=== PATIENT | male | born 1960 | race Caucasian/White ===

== ENCOUNTER 2024-09-23 06:05 | Inpatient (IN) | payer MEDICAID ==
[~2024-09-23] VITALS: Ht 188 cm; Wt 101.4 kg
[~2024-09-23 06:05] MED LIST: ASPI-378 OR; ATOR20TA PO; BUPR-133 PO; LISI20TA56 PO; LORA-1121 PO; SERT-289 PO; TICA90TA PO; ZOLP10TA6 PO
[2024-09-23] MEDS: ROPIVACAINE 0.5% (5MG/ML) 20ML AMPULE IJ ONE (07:09)
[2024-09-23] MEDS: BUPIVACAINE 0.25% INJ 50ML VIAL ONE (07:11)
[2024-09-23] MEDS: VANCOMYCIN HCL 1000 MG VL ONE (07:12)
[2024-09-23] MEDS ORDERED: HYDROmorphone HCL 2 MG/ML VL/or syr IV PRN (07:15)
[2024-09-23] MEDS: ONDANSETRON HCL 4 MG/2 ML VIAL IV ONE (07:15)
[2024-09-23] MEDS ORDERED: MORPHINE SULF PF 5 MG/10 ML VIAL ONE (07:21)
[2024-09-23] MEDS ORDERED: HYDROmorphone HCL 2 MG/ML VL/or syr ONE (07:21)
[2024-09-23] MEDS ORDERED: fentaNYL CITRATE 100 MCG/2 ML VL ONE ×2 (07:21→09:30)
[2024-09-23] MEDS ORDERED: KETAMINE 50mg/ML 1ml syringe ONE (07:21)
[2024-09-23] MEDS ORDERED: MIDAZOLAM HCL 2MG/2ML 2ml VIAL (1mg/ml) ONE (07:21)
[2024-09-23] MEDS ORDERED: ETOMIDATE (2MG/ML) 20ML VIAL IV ONE (07:22)
[2024-09-23] MEDS ORDERED: ONDANSETRON HCL 4 MG/2 ML VIAL ONE (07:22)
[2024-09-23] MEDS ORDERED: PROPOFOL 10 MG/ML 20 ML IV ONE (07:22)
[2024-09-23] MEDS ORDERED: DexAMETHasone SOD PHOS 10MG/1ML VIAL INJ ONE ×2 (07:22→07:26)
[2024-09-23] MEDS ORDERED: ePHEDrine SULFATE 50 MG/ML AMP ONE (07:22)
[2024-09-23] MEDS ORDERED: LIDOCAINE 2% (LOCAL ANESTH.) PF 5ml SDV ONE (07:22)
[2024-09-23] MEDS ORDERED: GLYCOPYRROLATE 0.2 MG/ML 1ML VIAL ONE (07:22)
[2024-09-23] MEDS ORDERED: NITROGLYCERIN 0.4 MG SL TAB SL PRN (07:30)
[2024-09-23] MEDS ORDERED: MORPHINE SULFATE INJ 2 MG/ml SYRG IV PRN (07:30)
[2024-09-23] MEDS: ceFAZolin 1GM/50ML 50 ML IV SCH (07:30)
[2024-09-23] MEDS: LACTATED RINGER'S 1,000 ML IV SCH (07:30)
[2024-09-23] MEDS ORDERED: ONDANSETRON HCL 4 MG/2 ML VIAL IV PRN (07:30)
[2024-09-23] MEDS: ceFAZolin 2 GM/D5W100ml 100 ML IV ONE (07:40)
[2024-09-23] MEDS: CEFEPIME 1GM/ 50ML 50 ML IV ONE (07:45)
[2024-09-23] MEDS: TRANEXAMIC ACID 20 ML ONE (07:50)
[2024-09-23] MEDS: KETOROLAC TROMETH 30 MG/ML 1ML VIAL IV SCH (10:00)
[2024-09-23] MEDS: DOCUSATE SOD 100 MG CAP PO SCH (10:00)
[2024-09-23] MEDS ORDERED: SUGAMMADEX 200mg/2ml Vial (100MG/ML) IV ONE ×2 (10:02→10:30)
--- NOTE | 2024-09-23 10:37 | DVHOP2 ---
Operative Report - 2 Report Details Date: 09/23/24 Preop Diagnosis: Left shoulder rotator cuff arthropathy Postop Diagnosis: Left shoulder rotator cuff arthropathy Surgeon: Shaji Diallo MD Scientist Electronics: Flores Fry, Physician Scientist Electronics Anesthesiologist: Dr. Brady Anesthesia: General, Regional Implant: Fx reverse shoulder system, 40 mm glenosphere, 7.5 mm augmented base plate with screws, 12 mm stem, 6mm retentive liner Consent: The patient was informed of the risks and benefits of the procedure. These include but are not limited to complications of anesthesia, postoperative infection, incomplete relief of symptoms, recurrence of symptoms, damage to blood vessels, nerves and tendons, deep venous thrombosis, pulmonary embolism and possible need for repeat surgery in the future. Complications: None Estimated Blood Loss: Less than 50 mL Indications for Surgery: The patient is a 64-year-old male who presented to the clinic with a history of left shoulder pain. Clinical and radiological evaluation demonstrated rotator cuff arthropathy. He had surgery on the other side and I was very satisfied. Nonoperative and operative management options were discussed. Surgery in the form of reverse shoulder arthroplasty was recommended due to failure of nonoperative management. Benefits, risks and treatment alternatives were discussed. Specific complications of the surgery such as neurovascular injury, infection, arthrofibrosis, loss of limb or life were discussed. The patient decided to proceed with the surgical option Name of Procedure Performed Left reverse shoulder arthroplasty with open biceps tenodesis Procedure Details Procedure Details: The patient was identified in the preoperative holding area and the surgical site was marked. The consent was verified. The patient was brought into the operating room and placed supine on the operating table. General anesthesia was administered. The patient was brought into the beachchair position at 45 degrees angle. The extremity was prepped and draped in the usual sterile manner with Betadine and ChloraPrep. A timeout was called out to confirm the identity of the patient, the nature of surgery, the site of surgery, development of impl ants and x-rays and allergies to medications. All the bony prominences were appropriately padded Exposure: A standard deltopectoral approach was used. An incision was made from the superior portion of the coracoid to the upper arm lateral to the axillary line. The skin and the subcutaneous tissue were dissected. The deep fascia was incised. The cephalic vein was identified. The coracoid was identified and the conjoined tendon was also identified. The pectoralis tendon, approximately 1 cm was released. The biceps tendon was identified and tenodesis was carried out. This was sutured to the pectoralis major tendon with the help of FiberWire suture and was cut proximally. Dobson retractors were inserted. Adequate exposure was noted. The deltoid was released with the help of a Nicholson elevator for better exposure. The subscapularis tendon was identified. The subscapularis tendon was released. Circumflex arteries and veins were coagulated. This was whipstitched for later identification and possible repair. The humeral head was now exposed with external rotation and release of the inferior capsule. This was gently dislocated using a Darrach retractor. Significant arthritis with full-thickness cartilage defect was noted. Some osteophytes were noted. A retractor was inserted below the CA ligament as well. There was complete tear of the supraspinatus and infraspinatus. Teres minor was intact. Subscapularis was also nearly completely torn with poor quality tissue. Humeral cut: The retroversion was set to 30 degrees. An external guide was used and affixed to the bone with the help of guide pins. Next, a saw was used to create the humeral cut. This was just above the rotator cuff footprint. Next, a small drill was used to find the intramedullary canal. Next, the humeral side was now prepared. This was now reamed up to 12 mm. Glenoid exposure and implantation of glenoid prosthesis: A Darrach retractor was then inserted to retract the humeral head and expose the glenoid. Release of the anterior and posterior capsule was carried out. Release of the middle and inferior glenohumeral ligament was carried out. Superior labrum and biceps were removed. Significant cartilage damage of the glenoid was noted. Significant superior inclination was noted. A tug test was performed to confirm the position of the axillary nerve which was out of the surgical field. The inferior capsule was left intact and was released only with the help of a blunt elevator. Next, the center of the glenoid was marked with the help of a Bovie using the biceps and the coracoid as landmarks. Next a 15 mm augmented guide was inserted, a guidewire was inserted through the central portion. This was found to be in anatomic location, slightly inferior to the center. Next the 7.5 mm augmented central reamer was inserted. Next the hand-held peripheral reamer was inserted. The periphery was reamed, minimal cartilage was removed. Appropriate soft tissue resection was carried out. Minimal cartilage was removed to preserve the underlying bone. Next the 7.5 mm 0 offset baseplate was inserted with the help of an front end web developer A central post was applied to the final implant on the back table and inserted with gentle taps. It was rotated to align the screws in the appropriate directions. Next a drill guide was used to drill the hole for the screws. Locking and nonlocking screws were used for excellent compression and fixation. The glenosphere was now implanted on top of the baseplate over the guidewire with the screw. The screw was rotated over the glenosphere for excellent fixation. No impingement was noted. A Gregg was used to test the stability of baseplate as well as the glenosphere and was found to be very secure. Next, after broaching, a trial stem was inserted. Next, a provisional soft tissue tensioning assessment was done with an attempt to reduce with a 3 and six mm trial liner. The 6 mm was found to be adequate with 1 mm of shuck. The final stem and liner was opened up. A final 6 mm retentive implant was opened up and inserted on the humeral stem. This was tapped and excellent fixation was noted. Excellent stability and range of motion was noted, abduction of 120 and flexion up to 120 degrees. The shoulder did not dislocate with adduction, internal rotation and extension or with abduction and external rotation. Shuck test was acceptable with approximately 1 mm of gap with manual longitudinal traction. The fixation was tested with the help of a Gregg clamp. Excellent fixation was noted. Irrigation was given with bulb syringe lavage with bacitracin and normal saline, Betadine and vancomycin powder was applied as well. All bony debris was also removed. C-arm was used throughout the procedure for evaluation of guidewire, humeral cut, baseplate and glenosphere position and finally humerus stem position and joint reduction. The subscapularis was approximated with the help of looped Ethibond sutures through the bone tunnel. Some approximation was noted. However the tissue quality was poor. Coverage was obtained inferiorly for some support. The deep tissue, skin and the subcutaneous tissue were closed with 0 Vicryl, 2-0 Vicryl and dex. Sterile dressing was applied. The patient was placed in a shoulder immobilizer. Condition Good Disposition Still a Patient SHAJI DIALLO MD Sep 23, 2024 10:37
[2024-09-23 10:48] VITALS: PULSE 83; RESP 13; O2SAT 95
[2024-09-23 11:15] VITALS: PULSE 85; RESP 13; O2SAT 92
[2024-09-23 12:28] VITALS: BP 112/64; PULSE 77; RESP 18; TEMP 97.5; O2SAT 92
[2024-09-23 13:00] VITALS: BP 107/67; PULSE 82; RESP 19; TEMP 97.9; O2SAT 92
--- NOTE | 2024-09-23 13:14 | DVH ---
FLUOROSCOPY TIME: 21 seconds TECHNIQUE: Intraoperative radiographs of the left shoulder were obtained. COMPARISON: XY R SHOULDER 1V XRAY on DOS: 09/25/23, XY R SHOULDER 1V XRAY on DOS: 09/25/23 FINDINGS: Refer to intraoperative report for further evaluation. IMPRESSION: Refer to intraoperative report for further evaluation.
[2024-09-23 17:04] VITALS: BP 123/65; PULSE 80; RESP 17; TEMP 97.6; O2SAT 96
[2024-09-23 21:00] VITALS: BP 113/63; PULSE 84; RESP 20; TEMP 98.6; O2SAT 96
[2024-09-24] MEDS: ceFAZolin 1GM/50ML 50 ML IV SCH (00:04)
[2024-09-24 01:00] VITALS: BP 116/63; PULSE 80; RESP 20; TEMP 98.3; O2SAT 94
[2024-09-24 05:00] VITALS: BP 110/64; PULSE 85; RESP 20; TEMP 97.8; O2SAT 95
[2024-09-24 06:43] LABS: Alanine Aminotransferase 15 U/L (7-40); Alkaline Phosphatase 70 U/L (46-116); Anion Gap 9 (5-15); BUN/Creatinine Ratio 15.3 (10.0-20.0); Blood Urea Nitrogen 17 mg/dL (9-23); Carbon Dioxide 23 mmol/L (20-31); Chloride 106 mmol/L (98-107); Sodium 138 mmol/L (136-145)
[2024-09-24] MEDS: OXYCODONE W/ ACETAMINOPHEN 5/325MG TABLET PO PRN (06:43)
[2024-09-24 06:44] LABS: Total Protein 5.7 g/dL (5.7-8.2)
[2024-09-24 06:45] LABS: Albumin 3.4 g/dL (3.2-4.8); Aspartate Aminotransferase 15 U/L (13-40)
[2024-09-24 06:46] LABS: Bilirubin, Total 0.3 mg/dL (0.2-1.0)
[2024-09-24 06:47] LABS: Glucose 116 mg/dL (74-106)
[2024-09-24 07:21] LABS: Basophils # (auto) 0 10 ^3/uL (0-0.2); Basophils % (auto) 0.4 % (0.0-2.0); Eosinophils # (auto) 0.1 10 ^3/uL (0-0.8); Eosinophils % (auto) 1.1 % (0.0-7.0); Hematocrit 35.6 % (41.0-53.0); Hemoglobin 12.1 g/dL (13.5-17.5); Lymphocytes # (auto) 1.8 10 ^3/uL (0.4-5.4); Lymphocytes % (auto) 17.1 % (10.0-50.0); Mean Corpuscular Hemoglobin 32.2 pg (28.0-32.0); Mean Corpuscular Hgb Conc. 33.9 g/dL (32.0-36.0); Mean Corpuscular Volume 94.9 fL (80.0-100.0); Neutrophils # (auto) 7.4 10 ^3/uL (1.6-8.6); Neutrophils % (auto) 71.4 % (37.0-80.0); Nucleated Red Blood Cells % 0.1 %; Platelet Count (auto) 209 10^3/uL (140-450); Red Blood Cells 3.76 10^6/uL (4.5-5.90); Red Cell Distribution Width 13.6 % (11.8-14.3); White Blood Cell 10.3 10^3/uL (4.4-10.8)
--- NOTE | 2024-09-24 07:35 | DVHDS2 ---
Discharge Summary Date of Admission Sep 23, 2024 at 07:44 Date of Discharge: Sep 24, 2024 Labs/Diagnostic Data: Laboratory Results Test 09/24/24 05:29 White Blood Count 10.3 10^3/uL (4.4-10.8) Red Blood Count 3.76 10^6/uL (4.5-5.90) Hemoglobin 12.1 g/dL (13.5-17.5) Hematocrit 35.6 % (41.0-53.0) Mean Corpuscular Volume 94.9 fL (80.0-100.0) Mean Corpuscular Hemoglobin 32.2 pg (28.0-32.0) Mean Corpuscular Hemoglobin Concent 33.9 g/dL (32.0-36.0) Red Cell Distribution Width 13.6 % (11.8-14.3) Platelet Count 209 10^3/uL (140-450) Mean Platelet Volume 6.3 fL (6.9-10.8) Neutrophils (%) (Auto) 71.4 % (37.0-80.0) Lymphocytes (%) (Auto) 17.1 % (10.0-50.0) Monocytes (%) (Auto) 10.0 % (0.0-12.0) Eosinophils (%) (Auto) 1.1 % (0.0-7.0) Basophils (%) (Auto) 0.4 % (0.0-2.0) Neutrophils # (Auto) 7.4 10 ^3/uL (1.6-8.6) Lymphocytes # (Auto) 1.8 10 ^3/uL (0.4-5.4) Monocytes # (Auto) 1.0 10 ^3/uL (0-1.3) Eosinophils # (Auto) 0.1 10 ^3/uL (0-0.8) Basophils # (Auto) 0 10 ^3/uL (0-0.2) Nucleated Red Blood Cells 0.1 % Sodium Level 138 mmol/L (136-145) Potassium Level 4.0 mmol/L (3.5-5.1) Chloride Level 106 mmol/L (98-107) Carbon Dioxide Level 23 mmol/L (20-31) Anion Gap 9 (5-15) Blood Urea Nitrogen 17 mg/dL (9-23) Creatinine 1.11 mg/dL (0.700-1.30) Glomerular Filtration Rate Calc 75 mL/min (>90) BUN/Creatinine Ratio 15.3 (10.0-20.0) Serum Glucose 116 mg/dL (74-106) Calcium Level 9.0 mg/dL (8.7-10.4) Total Bilirubin 0.3 mg/dL (0.2-1.0) Aspartate Amino Transferase (AST) 15 U/L (13-40) Alanine Aminotransferase (ALT) 15 U/L (7-40) Alkaline Phosphatase 70 U/L (46-116) Total Protein 5.7 g/dL (5.7-8.2) Albumin 3.4 g/dL (3.2-4.8) Other Laboratory Tests 09/24/24 05:29 Brief Hx & Hospital Course: Patient was brought to the hospital yesterday to undergo a left reverse shoulder arthroplasty. He tolerated the procedure well without complications and was kept overnight for postoperative observation. He has remained medically stable denying any overnight events and reports some postoperative shoulder pain that is being well managed with the help of pain medication. Patient is otherwise feeling well denying any other complaints or concerns during my evaluation and would like to go home. Condition at Discharge: Good Final Diagnosis/Problems List Left shoulder rotator cuff arthropathy Discharge Disposition: Home Discharge Instruct/Medications Diet: Regular Activity: See Comment Activity comment: Patient to remain in shoulder immobilizer six weeks from date of surgery Follow Up/Referral: Patient instructed to follow up with our office in 10-14 days for his 1st postoperative evaluation Medications: Sent via our outpatient EMR system Discharge Statement: "Patient was advised to return to the ER or call 911 if any headaches, dizziness, shortness of breath, chest pain, abdominal pain, bleeding, fevers, or worsening of medical condition. Patient was counseled about treatment plan, medications, possible side effects, patientverbalized understanding. All questions were answered to the best of my ability. This discharge took greater then 30 minutes in planning, reviewing documentation, counseling the patient, and discussing with other team members." ASSESSMENT ASSESSMENT Assessment Left shoulder rotator cuff arthropathy HUMBLE GREEN Sep 24, 2024 07:35
--- NOTE | 2024-09-24 07:36 | DVHPN2 ---
Progress Note - Dictate Date Seen: Sep 24, 2024 Medical Necessity Reason Pt with a Central, PICC or Fol: No Subjective Patient was lying comfortably in bed during my evaluation reports some postoperative shoulder pain that is being well managed with the help of pain medication. Patient reports that he is feeling well denying any other complaints or concerns during my evaluation and would like to go home. vital signs Vital Sign Date Time Temp Pulse Resp B/P (MAP) Pulse Ox O2 Delivery O2 Flow Rate FiO2 09/24/24 05:00 97.8 85 20 110/64 (79) 95 97.8 09/23/24 20:00 Nasal Cannula* 3 32 Total Intake and Output 09/23/24 09/23/24 09/24/24 15:00 23:00 07:00 Intake Total 170 ml 1530 ml Output Total 500 ml Balance 170 ml 1030 ml medications Current Medications Medications Dose Ordered Sig/Roly Route Start Time Stop Time Status Last Admin Dose Admin Lactated Ringer's 1,000 ml @ 100 mls/hr Q10H IV 09/23/24 07:30 09/24/24 05:29 100 MLS/HR Oxycodone/ Acetaminophen 1 tab Q4HP PRN PO 09/23/24 07:30 09/24/24 06:43 1 TAB Hydromorphone HCl 1 mg Q2HP PRN IV 09/23/24 07:30 Ondansetron HCl 4 mg Q6HP PRN IV 09/23/24 07:30 Docusate Sodium 100 mg Q12HR PO 09/23/24 10:00 09/23/24 21:28 100 MG Ketorolac Tromethamine 15 mg BID IV 09/23/24 10:00 09/28/24 09:59 09/23/24 21:28 15 MG Nitroglycerin 0.4 mg Q5MINP PRN SL 09/23/24 07:30 Morphine Sulfate 2 mg Q30M PRN IV 09/23/24 07:30 Vancomycin HCl 0 ml @ 0 mls/hr UD IV 09/24/24 10:00 UNV objective A&O x4 in no acute distress Shoulder range of motion not fully evaluated as patient remains in shoulder immobilizer Aquacel dressing clean, dry, and intact No distal edema or calf tenderness to palpation Neurovascularly intact with cap refill less than 2 seconds laboratory and microbiology Laboratory Tests 09/24/24 05:29 Test 3/28/25 05:29 Range/Units Serum Glucose 116 H 74-106 mg/dL Assessment/Plan Patient to be discharged home and advised to remain in shoulder immobilizer for six weeks from date of surgery. I also instructed the patient to follow up with our office in 10-14 days for his 1st postoperative evaluation to call our office if he has any questions or concerns. Rx sent via our outpatient EMR system. He understood and agreed. Plan discussed with: Patient HUMBLE GREEN Sep 24, 2024 07:36
[2024-09-24 09:00] VITALS: BP 120/72; PULSE 77; RESP 18; TEMP 98.3; O2SAT 94
[2024-09-24] MEDS: VANCOMYCIN 1GM/200ML PM 250 ML IV SCH (10:00)
[2024-09-24] MEDS ORDERED: VANCOMYCIN PER PHARMACY 0 MG IV SCH (10:00)
[2024-09-24] MEDS ORDERED: VANCOMYCIN 1GM/200ML PM 250 ML IV SCH (10:00)
[2024-09-24] MEDS: HYDROmorphone HCL 2 MG/ML VL/or syr IV PRN (10:05)
[2024-09-24 11:34] VITALS: TEMP 36.8
[2024-09-24 13:00] VITALS: BP 119/68; PULSE 77; RESP 18; TEMP 98.4; O2SAT 97
[2024-09-24 14:20] VITALS: BP 119/68; PULSE 77; RESP 18
== END 2024-09-24 14:46 | disposition home or self-care (01) | DRG 322 ==
LOC: SUR 06:05 → OVERFLOW 07:44 → CENTRAL 12:00
PROVIDERS: ADMIT Student in an Organized Health Care Education/Training Program; ATTEND Student in an Organized Health Care Education/Training Program
PROC: 0LS40ZZ Reposition Left Upper Arm Tendon, Open Approach (ICD-10-PCS; 2024-09-23)
PROC: 0RRK00Z Replacement of Left Shoulder Joint with Reverse Ball and Socket Synthetic Substitute, Open Approach (ICD-10-PCS; principal; 2024-09-23 07:33)
DX: M75.122 Complete rotator cuff tear or rupture of left shoulder, not specified as traumatic (principal); M19.012 Primary osteoarthritis, left shoulder; Z96.612 Presence of left artificial shoulder joint
CPT/HCPCS: 36415; 73030; 76000; 80053; 82565; 85025; 86850; 86900; 86901; 97110; 97116; 97163; 97530; A4565; G0378; J1100; J1885; J2003; J2250; J2405; J2704; J3490